=== PATIENT | male | born 1980 | race Caucasian/White ===

== ENCOUNTER 2021-08-31 17:38 | Emergency (ER) | payer BC ==
--- NOTE | 2021-08-31 18:26 | EDM.PDOC ---
ED HPI GENERAL MEDICAL PROBLEM - General Chief Complaint: Chest Pain Stated Complaint: CHEST PAIN Time Seen by Provider: 08/31/21 17:52 Source of Information: Reports: Patient History Limitations: Reports: No Limitations, Other (ED vital signs reveal a temp of 99.6, pulse of 73, respiratory rate of 18, blood pressure 136/92, pulse ox 96% on room air.) - History of Present Illness INITIAL COMMENTS - FREE TEXT/NARRATIVE: 40-year-old male presents the emergency department from [facility] with complaints of chest pain. Patient states that this morning he was driving while at work at about 6:30 AM experienced 3 sharp stabbing pain noted to the left lateral rib area. Patient states he has not had any discomfort since then. He denies any cardiac history. States he is otherwise healthy and does not take any prescription medications. Denies any recent fever, chills, nausea, vomiting, cough or shortness of breath or diarrhea. States he does have a history of smoking up to a half a pack a day for the past 20 years. However, he states that he quit smoking yesterday. - Related Data Allergies Allergy/AdvReac Type Severity Reaction Status Date / Time No Known Allergies Allergy Verified 08/31/21 17:51 Home Meds: Home Meds . [No Known Home Meds] 08/31/21 [History] Past Medical History Genitourinary History: Reports: Renal Calculus - Infectious Disease History Infectious Disease History: Reports: Chicken Pox - Past Surgical History HEENT Surgical History: Reports: Adenoidectomy, Tonsillectomy Social & Family History - Family History Family Medical History: No Pertinent Family History - Tobacco Use Tobacco Use Status *Q: Former Tobacco User Used Tobacco, but Quit: Yes Month/Year Tobacco Last Used: 08/2021 - Caffeine Use Caffeine Use: Reports: Coffee - Recreational Drug Use Recreational Drug Use: No ED ROS GENERAL - Review of Systems Review Of Systems: Comprehensive ROS is negative, except as noted in HPI. ED EXAM, GENERAL - Physical Exam Exam: See Below Exam Limited By: No Limitations General Appearance: Alert, WD/WN, No Apparent Distress Ears: Normal External Exam, Hearing Grossly Normal Nose: Normal Inspection Throat/Mouth: Normal Inspection, Normal Lips, Normal Voice, No Airway Compromise Head: Atraumatic Neck: Normal Inspection, Supple Respiratory/Chest: No Respiratory Distress, Lungs Clear, Normal Breath Sounds, No Accessory Muscle Use, Chest Non-Tender Cardiovascular: Normal Peripheral Pulses, Regular Rate, Rhythm, No Edema, No Murmur Peripheral Pulses: 2+: Radial (L), Radial (R) GI/Abdominal: Normal Bowel Sounds, Soft, Non-Tender, No Distention (Male) Exam: Deferred Rectal (Males) Exam: Deferred Back Exam: Normal Inspection, Full Range of Motion Extremities: Normal Inspection, Normal Range of Motion, Non-Tender, No Pedal Edema, Normal Capillary Refill Neurological: Alert, Oriented, Normal Cognition Psychiatric: Normal Affect, Normal Mood Skin Exam: Warm, Dry, Intact, Normal Color, No Rash Lymphatic: No Adenopathy Course - Vital Signs Text/Narrative:: Upon exam, the patient is awake alert and oriented. He is in no acute distress. Denies having any chest pain at this time. Physical exam is unremarkable. Not able to reproduce chest pain with deep inspiration or with palpation. Will obtain a full cardiac work-up to include labs, chest x-ray and EKG. Last Recorded V/S: Last Vital Signs Temp 99.6 F 08/31/21 17:46 Pulse 73 08/31/21 17:46 Resp 18 08/31/21 17:46 BP 136/92 H 08/31/21 17:46 Pulse Ox 96 08/31/21 17:46 - Orders/Labs/Meds Labs: Laboratory Tests 08/31/21 08/31/21 08/31/21 Range/Units 18:19 18:19 18:19 WBC 5.60 (4.23-9.07) K/mm3 RBC 5.78 (4.63-6.08) M/mm3 Hgb 16.6 (13.7-17.5) gm/dl Hct 49.4 (40.1-51.0) % MCV 85.5 (79.0-92.2) fl MCH 28.7 (25.7-32.2) pg MCHC 33.6 (32.2-35.5) g/dl RDW Std Deviation 42.7 (35.1-43.9) fL Plt Count 217 (163-337) K/mm3 MPV 9.5 (9.4-12.3) fl Neut % (Auto) 62.9 (34.0-67.9) % Lymph % (Auto) 21.6 L (21.8-53.1) % [place] % (Auto) 11.8 (5.3-12.2) % Eos % (Auto) 3.0 (0.8-7.0) Baso % (Auto) 0.5 (0.1-1.2) % Neut # (Auto) 3.52 (1.78-5.38) K/mm3 Lymph # (Auto) 1.21 L (1.32-3.57) K/mm3 [place] # (Auto) 0.66 (0.30-0.82) K/mm3 Eos # (Auto) 0.17 (0.04-0.54) K/mm3 Baso # (Auto) 0.03 (0.01-0.08) K/mm3 D-Dimer, Quantitative < 0.19 L (0.19-0.50) mg/L Sodium 141 (136-145) mEq/L Potassium 3.9 (3.5-5.1) mEq/L Chloride 103 (98-107) mEq/L Carbon Dioxide 29 (21-32) mEq/L Anion Gap 12.9 (5-15) BUN 18 (7-18) mg/dL Creatinine 1.1 (0.7-1.3) mg/dL Est Cr Clr Drug Dosing 98.96 mL/min Estimated GFR (MDRD) > 60 (>60) mL/min BUN/Creatinine Ratio 16.4 (14-18) Glucose 126 H (70-99) mg/dL Calcium 8.9 (8.5-10.1) mg/dL Magnesium 1.9 (1.8-2.4) mg/dL Total Bilirubin 0.5 (0.2-1.0) mg/dL AST 32 (15-37) U/L ALT 98 H (16-63) U/L Alkaline Phosphatase 64 (46-116) U/L Troponin I < 0.017 (0.00-0.056) ng/mL C-Reactive Protein < 0.2 (<1.0) mg/dL Total Protein 7.5 (6.4-8.2) g/dl Albumin 4.1 (3.4-5.0) g/dl Globulin 3.4 gm/dL Albumin/Globulin Ratio 1.2 (1-2) - Re-Assessments/Exams Free Text/Narrative Re-Assessment/Exam: 12/23/21 18:34 Radiologist impression frontal view of the chest: Heart size and mediastinum are normal. Lungs are clear with no acute parenchymal change. No acute interosseous finding is seen. Impression: 1. Nothing acute is seen on portable chest x-ray. 08/31/21 19:11 Hematology is unremarkable, coagulation reveals a D-dimer less than 0.19, chemistry reveals a sodium of 141, potassium 3.9, anion gap 12.9, BUN 18, creatinine 1.1, GFR greater than 60, glucose 126, magnesium 1.9, ALT 98, troponin less than 0.017, C-reactive protein less than 0.2 Patient will be discharged home with recommendations that he follow-up with his primary care provider. Departure - Departure Time of Disposition: 19:12 Disposition: Home, Self-Care 01 Condition: Good Clinical Impression: Atypical chest pain Instructions: Nonspecific Chest Pain, Adult, [id number] Referrals: Caity Roth [employer]UC[employer] INSTRUCTOR [Primary Care Provider] - Forms: ED Department Discharge Additional Instructions: You were seen in the emergency department today with complaints of chest pain noted this morning however it had resolved by the time you were evaluated and the emergency department. Full cardiac work-up was completed to include chest x-ray, EKG as well as lab studies. These were all unremarkable. Recommend that you stop smoking and lose weight as discussed. Follow-up with your primary care provider as needed. Should your condition worsen or change, do not hesitate returning to the emergency department. Sepsis Event Note (ED) - Evaluation Sepsis Screening Result: No Definite Risk - Focused Exam Vital Signs: Vital Signs Temp Pulse Resp BP Pulse Ox 08/31/21 17:46 99.6 F 73 18 136/92 H 96
--- NOTE | 2021-08-31 18:29 | CR ---
Chest: Frontal view of the chest was obtained utilizing portable technique. COmparison: No prior chest imaging is available. Heart size and mediastinum are normal. Lungs are clear with no acute parenchymal change. No acute osseous finding is seen. Impression: 1. Nothing acute is seen on portable chest x-ray. Diagnostic code #1
--- NOTE | 2021-08-31 19:57 | PCM.EKG ---
#1 Interpretation EKG Date: 08/31/21 Time: 17:49 Rhythm: NSR Rate (Beats/Min): 79 [place]: Normal P-Wave: Present QRS: Normal ST-T: Normal QT: Normal Comparison: NA - No Prior EKG EKG Interpretation Comments: Per Dr. Diez interpretation: Sinus rhythm at 79 bpm; no AE; no AVB; no ischemic changes; normal transition; no LAD/RAD; no LVH/RVH; no IVCD; QTC within normal limits
== END 2021-08-31 19:20 | disposition home or self-care (01) ==
LOC: JD.ED 17:38
DX: R07.89 Other chest pain (principal); Z87.891 Personal history of nicotine dependence
CPT/HCPCS: 36415; 71045; 71045-26; 80053; 83735; 84484; 85025; 85379; 86140; 93005; 99285-25

== ENCOUNTER 2022-06-29 14:22 | Emergency (ER) | payer BC | END 2022-06-29 16:38 | disposition home or self-care (01) | LOC: JD.ED 14:22 | DX: M79.622 Pain in left upper arm (principal); I10 Essential (primary) hypertension | CPT/HCPCS: 93005; 99283 ==

== ENCOUNTER 2023-07-07 07:41 | Emergency (ER) | payer OTHER ==
[2023-07-07] MEDS ORDERED: Aspirin 81 MG Tab.Chew PO ONE (08:04)
[2023-07-07] MEDS ORDERED: Sodium Chloride 0.9% 10 ML Syringe FLUSH PRN (08:04)
[2023-07-07 08:25] LABS: BASOPHILS ABSOLUTE AUTO 0.1 K/mm3 (0.0-0.2); BASOPHILS PERCENT AUTO 1.1 % (0.0-1.0); EOSINOPHILS ABSOLUTE AUTO 0.5 K/mm3 (0.0-0.4); EOSINOPHILS PERCENT AUTO 7.2 % (0.0-6.0); HEMATOCRIT 47.8 % (42.0-52.0); HEMOGLOBIN 16.6 gm/dl (14.0-18.0); IMMATURE GRAN ABSOLUTE AUTO 0.02 K/mm3 (0.00-0.05); IMMATURE GRAN PERCENT AUTO 0.3 % (0.0-0.4); LYMPHOCYTES ABSOLUTE AUTO 1.6 K/mm3 (1.0-4.8); LYMPHOCYTES PERCENT AUTO 24.4 % (24.0-44.0); MEAN CORPUSCULAR HEMOGLOBIN 29.5 pg (28.0-32.0); MEAN CORPUSCULAR HGB CONC 34.7 g/dl (32.0-36.0); MEAN CORPUSCULAR VOLUME 84.9 fl (83.0-99.0); MEAN PLATELET VOLUME 9.6 fl (9.4-12.4); MONOCYTES ABSOLUTE AUTO 0.6 K/mm3 (0.0-0.8); MONOCYTES PERCENT AUTO 9.8 % (0.0-8.0); NEUTROPHILS ABSOLUTE AUTO 3.6 K/mm3 (1.8-7.7); NEUTROPHILS PERCENT AUTO 57.2 % (41.0-71.0); PLATELET COUNT,PLT 222 K/mm3 (150-400); RED BLOOD CELL COUNT 5.63 M/mm3 (4.52-5.90); WHITE BLOOD CELL COUNT,WBC 6.35 K/mm3 (3.9-11.3)
[2023-07-07 08:36] LABS: INR 1.04; PROTHROMBIN TIME 11.1 SECONDS (9.7-12.0)
[2023-07-07 08:43] LABS: A/G RATIO 1.2 (1-2); ANION GAP 13.1 (5-15); BILIRUBIN TOTAL 0.8 mg/dL (0.2-1.0); BUN/CREATININE RATIO 13.6 (14-18); CALCIUM 9.4 mg/dL (8.5-10.1); CREATININE 1.1 mg/dL (0.7-1.3); MAGNESIUM 1.7 mg/dL (1.8-2.4); PROTEIN TOTAL,TP 7.4 g/dl (6.4-8.2)
[2023-07-07 08:44] LABS: POTASSIUM,K 4.1 mEq/L (3.5-5.1)
[2023-07-07 08:48] LABS: D-DIMER QUANTITATIVE < 0.19 mg/L (0.19-0.50)
== END 2023-07-07 10:10 | disposition home or self-care (01) ==
LOC: JD.ED 07:41
DX: R07.89 Other chest pain (principal); M79.602 Pain in left arm; R73.9 Hyperglycemia, unspecified; F17.210 Nicotine dependence, cigarettes, uncomplicated
CPT/HCPCS: 36415; 71045; 80053; 83735; 84484; 85025; 85379; 85610; 93005; 99285; A9270; 93010; 99283